=== PATIENT | female | born 1985 | race Caucasian/White ===

== ENCOUNTER 2017-11-11 14:54 | Emergency (ER) | payer BC ==
[~2017-11-11 14:54] MED LIST: OXYC1SOL5 PO; PRENTAB72 PO
[2017-11-11] MEDS ORDERED: BETAMETHASONE SOD PHOS/ACETATE SUSP 30 MG/5 ML VIAL IM ONE (16:45)
--- NOTE | 2017-11-11 16:57 | PD ---
HPI Chief Complaint bleeding Date Seen: Nov 11, 2017 Time Seen: 16:32 Travel History International Travel<30 Days: No Contact w/Intl Traveler<30Days: No Known Affected Area: No History of Present Illness HPI Pt is a wilmar 32y/o @ 23.3wks. She has PNC with Dr. Coates. She presented today after calling him and being advised to come to triage for evaluation. She has a known placenta previa and reports that today she went to the bathroom and noticed a small amt of discoloration in her underwear. She urinated and when she wiped she saw bright red blood. The total cumulative amt was approx a half dollar size. She reports no intercourse. No ctx, cramping, or LOF. She has +FM. She states that she has been more active lately, on her feet, and lifting her toddler. Weeks Gestation: 23 Para: 1 : 3 History Past Medical History Medical History: Denies Significant Hx Obstetric History Obstetric History 1. SAB 2. 3. current Past Surgical History Narrative Surgical open appendectomy Family History Family History: Negative Social History Alcohol Use: No Tobacco Use: No Substance Abuse: No Allergies-Medications (Allergen,Severity, Reaction): Coded Allergies: No Known Allergies (Unverified , 08/27/15) Home Meds Active Scripts Oxycodone W/ Acetaminophen (Oxycodone/Acetaminophen 5-325 mg/5Ml) 5 mg/325 mg Tab, 1 TAB PO Q4H Y for PAIN SCALE 1 TO 4, #30 TAB Prov:Harry Coates MD 08/29/15 Reported Medications Vit W/ Ferrous Fumara () Tab, 1 PO, TAB 09/02/14 Review of Systems Except as stated in HPI: all other systems reviewed are Neg Physical Exam Narrative General: well developed, well nourished, no acute distress HEENT: normocephalic atraumatic, extraocular movements intact, neck supple Abdomen: soft, gravid, nontender, nondistended Extremities: full range of motion Skin: normal coloration, no rashes, no suspicious skin lesions noted Neurologic: cranial nerves 2-12 grossly intact, normal muscle tone, normal gait Psychiatric: normal mood and affect, appropriate FHTs: 150s [place]: no ctx Data Data Vital Signs Reviewed: Yes Orders Orders Vital Signs (Adult) .ON ADMISSION (11/11/17 16:31) ^ Labor Status (11/11/17 16:31) ^ Non Stress Test (11/11/17 16:31) MDM Plan 32y/o @ 23.3wks with previa and small amt of bleeding. -- toco quiet -- +FHTs -- discussed R/B/A of BMZ at this EGA and pt accepts -- advised that sometimes a small previa bleed precedes a larger bleed; advised on inpt monitoring x24hrs vs outpt; pt stated that she lives very close and would prefer outpt monitoring; given very small amt of blood with nothing further since arrival with multiple voids, this is reasonable -- pt advised to limit lifting her toddler and restrict strenuous activity; maintain hydrations to avoid uterine irritability/bleeding Dispo: stable for d/c home with precautions, return to triage in 24hrs for dose #2, Dr. Coates notified and agreed with POC Diagnosis Diagnosis: Primary Impression: 23 weeks gestation of Additional Impressions: Placenta previa Vagina bleeding Condition: Hodan Taveras MD Nov 11, 2017 16:57
== END 2017-11-11 17:20 | disposition home or self-care (01) ==
LOC: HOBED 14:54
DX: O44.12 Complete placenta previa with hemorrhage, second trimester (principal); Z3A.23 23 weeks gestation of pregnancy
CPT/HCPCS: 96372; 99283; J0702

== ENCOUNTER → 2017-11-12 | Outpatient (CLI) | payer BC ==
[2017-11-12] MEDS: BETAMETHASONE SOD PHOS/ACETATE SUSP 30 MG/5 ML VIAL IM (17:08)
== END ==
LOC: HOBG 16:34
DX: O44.00 Complete placenta previa NOS or without hemorrhage, unspecified trimester (principal); Z3A.00 Weeks of gestation of pregnancy not specified
CPT/HCPCS: J0702

== ENCOUNTER → 2017-11-24 | Outpatient (CLI) | payer BC | LOC: HPND 14:46 | PROVIDERS: ATTEND Obstetrics & Gynecology | DX: O44.02 Complete placenta previa NOS or without hemorrhage, second trimester (principal); O44.42 Low lying placenta NOS or without hemorrhage, second trimester | CPT/HCPCS: 76816 ==

== ENCOUNTER → 2017-12-26 | Outpatient (CLI) | payer BC | LOC: HPND 14:58 | PROVIDERS: ATTEND Obstetrics & Gynecology | DX: O44.02 Complete placenta previa NOS or without hemorrhage, second trimester (principal) | CPT/HCPCS: 76816 ==

== ENCOUNTER 2018-02-28 13:01 | Inpatient (IN) ==
[~2018-02-28 13:01] MED LIST changes: +Ketorolac Inj 30 MG/ML (IVP) Vial IV.PUSH PRN; -OXYC1SOL5 PO; -PRENTAB72 PO
[2018-02-28] MEDS ORDERED: Sodium Chlor 0.9% Inj 500 ML IV.SIG PRN (13:26)
[2018-02-28] MEDS ORDERED: Sod Chloride 0.9% Inj 1,000 ML IV.CONT PRN (13:26)
[2018-02-28] MEDS ORDERED: Oxytocin 30 Units/500ml Premix 30 UNITS/500 ML BAG IV.SIG ONE (13:26)
[2018-02-28] MEDS ORDERED: Naloxone Inj 0.4 MG/ML Vial IV.PUSH PRN ×2 (13:26→17:47)
[2018-02-28] MEDS ORDERED: fentaNYL Citrate Inj 100 MCG/2 ML Ampul IV.PUSH PRN ×2 (13:26)
[2018-02-28] MEDS ORDERED: Citric Acid/Sodium Citrate Liq 30 ML UDC PO SCH (13:30)
--- NOTE | 2018-02-28 13:31 | P.HPOB ---
History of Present Illness Primary Care Physician: UNKNOWN Dr. Coates Chief Complaint: Water broke History of Present Illness: Patient is a 32-year-old white female at [address] Coates for care presents complaining of gross rupture the membranes just hours ago , no bleeding. That she is having contractions that are uncomfortable. heart rate tracing is reactive. Weeks Gestation:: 39 Para: 1 : 3 Total # of Miscarriage(s): 1 Review of Systems Constitutional: Denies anorexia, Denies body ache(s), Denies chills, Denies daytime sleepiness, Denies excessive sweating, Denies fatigue, Denies fever(s), Denies headache(s), Denies increased appetite, Denies lack of energy, Denies malaise, Denies night sweats, Denies weakness, Denies weight gain, Denies weight loss, Denies other Cardiovascular: Denies bluish discoloration of hand/feet, Denies chest pain, Denies chest pain at rest, Denies chest pain with activity, Denies excessive sweating, Denies fainting, Denies fast heart rate, Denies foot swelling, Denies generalized swelling, Denies irregular heart rhythm, Denies leg pain with activity, Denies leg sores, Denies leg swelling, Denies lightheadedness, Denies radiating jaw, neck or arm pain, Denies rapid, pounding, or irregular heartbeat , Denies shortness of breath, Denies shortness of breath with activity, Denies shortness of breath when lying down, Denies shortness of breath causing sudden awakening, Denies slow heart rate, Denies other Respiratory: Denies change in phlegm color, Denies chest congestion, Denies cough, Denies coughing up blood, Denies excessive phlegm production, Denies pain on inspiration, Denies pain with cough, Denies shortness of breath, Denies shortness of breath with activity, Denies snoring, Denies stridor, Denies wheezing, Denies other Gastrointestinal: Denies abdominal pain, Denies belching, Denies black, tarry stools, Denies bloating, Denies bright, red blood in stools, Denies change in bowel habits, Denies constant urge to pass stool, Denies change in stools, Denies coffee ground vomit, Denies constipation, Denies cramping, Denies difficulty swallowing, Denies excessive passing of gas, Denies feeling full early, Denies heartburn, Denies incontinent of stools, Denies loose stools, Denies nausea, Denies pain with swallowing, Denies vomiting, Denies vomiting blood, Denies other Genitourinary: Denies abnormal periods, Denies abnormal vaginal bleeding, Denies absent period, Denies bleeding between periods, Denies blood in urine, Denies difficulty starting urination, Denies difficulty urinating, Denies dribbling after urination, Denies frequent nighttime urination, Denies genital itching, Denies genital lesions, Denies heavy periods, Denies hot flashes, Denies light periods, Denies nipple discharge, Denies painful intercourse, Denies painful periods, Denies painful urination, Denies pelvic pain, Denies prolapse symptoms, Denies sexual problems, Denies side pain, Denies urinary incontinence, Denies urinary urgency, Denies vaginal discharge, Denies vaginal dryness, Denies vaginal odor, Denies vaginal itching, Denies other Neurologic: Denies abnormal hearing, Denies abnormal movements, Denies abnormal speech, Denies abnormal walking, Denies behavioral changes, Denies burning sensations, Denies confusion, Denies dizziness, Denies fainting, Denies frequent falls, Denies headache(s), Denies lack of coordination, Denies localized weakness, Denies loss of vision, Denies memory loss, Denies numbness, Denies other visual disturbances, Denies radiating pain, Denies restless legs, Denies convulsions, Denies seizure-like activity, Denies sensory deficit, Denies tingling, Denies tingling/numbness/burning sensations, Denies tremor(s), Denies unsteadiness, Denies weakness, Denies other PMFSH - Tobacco History Smoking Status: Never smoker - Alcohol History How Often Do You Have a Drink Containing Alcohol: Never - Travel History History of Recent Travel: No Recent Travel in the [facility] Within the Last 8 Weeks: No Recent Travel Out of the Country Within the Last 8 Weeks: No Medications and Allergies Allergies Allergy/AdvReac Type Severity Reaction Status Date / Time No Known Allergies Allergy Uncoded 08/27/15 20:21 Exam Vital signs: Vital Signs 02/28/18 13:20 Temperature 98.4 F Respiratory Rate 18 - Constitutional no acute distress - Routine HEENT Exam Head: Present: normocephalic, atraumatic Eye: Present: PERRL - Routine Respiratory Exam Present: CTA bilaterally - Routine Cardiovascular Exam Present: RRR, S1, S2 - Routine Exam Comments: Cervix is 2/70/-1/vertex - Routine Skin Exam Present: intact - Routine Neurological Exam Present: alert, oriented X3, CN II-XII intact Caprini VTE Risk Assessment Caprini VTE Risk Assessment: No/Low Risk (score <= 1) Caprini Risk Assessment Model: Point Value = 1 Point Value = 2 Point Value = 3 Point Value = 5 Age 41-60 Minor surgery BMI > 25 kg/m2 Swollen legs Varicose veins or History of unexplained or recurrent spontaneous Oral contraceptives or hormone replacement Sepsis (< 1 month) Serious lung disease, including pneumonia (< 1 month) Abnormal pulmonary function Acute myocardial infarction Congestive heart failure (< 1 month) History of inflammatory bowel disease Medical patient at bed rest Age 61-74 Arthroscopic surgery Major open surgery (> 45 min) Laparoscopic surgery (> 45 min) Malignancy Confined to bed (> 72 hours) Immobilizing plaster cast Central venous access Age >= 75 History of VTE Family history of VTE Factor V Leiden Prothrombin [id number] Lupus anticoagulant Anticardiolipin antibodies Elevated serum homocysteine Heparin-induced thrombocytopenia Other congenital or acquired thrombophilia Stroke (< 1 month) Elective arthroplasty Hip, pelvis, or leg fracture Acute spinal cord injury (< 1 month) Prophylaxis Regimen: Total Risk Factor Score Risk Level Prophylaxis Regimen 0-1 Low Early ambulation 2 Moderate Order ONE of the following: *Sequential Compression Device (SCD) *Heparin 5000 units SQ BID 3-4 Higher Order ONE of the following medications: *Heparin 5000 units SQ TID *Enoxaparin/Lovenox 40 mg SQ daily (WT < 150 kg, CrCl > 30 mL/min) *Enoxaparin/Lovenox 30 mg SQ daily (WT < 150 kg, CrCl > 10-29 mL/min) *Enoxaparin/Lovenox 30 mg SQ BID (WT < 150 kg, CrCl > 30 mL/min) AND/OR *Sequential Compression Device (SCD) 5 or more Highest Order ONE of the following medications: *Heparin 5000 units SQ TID (Preferred with Epidurals) *Enoxaparin/Lovenox 40 mg SQ daily (WT < 150 kg, CrCl > 30 mL/min) *Enoxaparin/Lovenox 30 mg SQ daily (WT < 150 kg, CrCl > 10-29 mL/min) *Enoxaparin/Lovenox 30 mg SQ BID (WT < 150 kg, CrCl > 30 mL/min) AND *Sequential Compression Device (SCD) Assessment and Plan - Diagnosis (1) Amniotic fluid leaking Code(s): O42.90 - Premature rupture of membranes, unspecified as to length of time between rupture and onset of labor, unspecified weeks of gestation Status : Acute (2) Uterine contractions Status: Acute (3) 39 weeks gestation of Code(s): Z3A.39 - 39 weeks gestation of Status: Acute - Plan Plan admit the patient to Dr. Coatse's service, to be admitted labor and delivery. Plan is admit, augment as needed, and anticipate vaginal delivery plan of care discussed with Dr. Coates
[2018-02-28] MEDS ORDERED: Penicillin G Potassium Inj 5,000,000 UNIT in Sodium Chloride 0.9% Inj 100 ML IV.SIG ONE (14:30)
[2018-02-28 14:42] LABS: Bilirubin,Urine Negative (Negative); Clarity,Urine Cloudy (Clear); Color,Urine Amber (Yellw/Straw); Glucose,Urine (UA) Negative (Negative); Leukocyte Esterase,Urine Small (Negative); Mucus,Urine Few /lpf (Occasional); Nitrite,Urine Negative (Negative); Specific Gravity,Urine 1.019 (1.002-1.035); Squamous Epithelial Cell,Urine 15 /hpf (0-5)
[2018-02-28 14:55] LABS: Amphetamine Urine With Conf Neg (Neg); Benzodiazepine Urine With Conf Neg (Neg)
[2018-02-28] MEDS ORDERED: Oxytocin 30 Units/500ml Premix 30 UNITS/500 ML BAG IV.SIG PRN (15:30)
[2018-02-28] MEDS ORDERED: Measles/Mumps/Rubella Vaccine Inj 0.5 ML Vial SQ ONE (16:00)
[2018-02-28] MEDS ORDERED: Diphtheria/Tetanus/Pertussis Vaccine Inj 0.5 ML Syringe IM ONE (16:00)
[2018-02-28 16:43] LABS: Baso % (Auto) 0.3 % (0.0-2.0); Eos % (Auto) 0.3 % (0.0-4.0); Hematocrit 38.1 % (35.0-46.0); Hemoglobin 12.8 gm/dL (11.6-15.3); Lymph % (Auto) 8.3 % (9.0-44.0); Mean Corpuscular HGB Conc 33.5 % (32.0-36.0); Mean Corpuscular Hemoglobin 29.5 pg (27.0-34.0); Mean Corpuscular Volume 88.2 fL (80.0-100.0); Mean Platelet Volume 9.3 fL (7.0-11.0); Mono # (Auto) 0.5 th/mm3 (0.0-0.9); Mono % (Auto) 4.5 % (0.0-8.0); Neut # (Auto) 10.1 th/mm3 (1.8-7.7); Neut % (Auto) 86.6 % (16.0-70.0); Platelet Count 158 th/mm3 (150-450); Red Blood Count 4.32 mil/mm3 (4.00-5.30); Red Cell Distribution Width 13.6 % (11.6-17.2); White Blood Count 11.7 th/mm3 (4.0-11.0)
[2018-02-28] MEDS ORDERED: Lidocaine PF 1% Inj 10 ML Amp ONE (17:27)
[2018-02-28] MEDS ORDERED: Ketorolac Inj 30 MG/ML (IVP) Vial IV.PUSH ONE (17:45)
[2018-02-28] MEDS ORDERED: Zolpidem Tartrate 5 MG Tablet PO PRN (17:47)
[2018-02-28] MEDS ORDERED: Witch Hazel 50%/Glyderin 12.5% 40 Pad Jar RECTAL PRN (17:47)
[2018-02-28] MEDS ORDERED: Bisacodyl 10 MG Supp RECTAL PRN (17:47)
[2018-02-28] MEDS ORDERED: Benzocaine 20% Top Spray 60 ML Can TOPICAL PRN (17:47)
[2018-02-28] MEDS ORDERED: Acetaminophen 325 MG Tablet PO PRN (17:47)
[2018-02-28] MEDS ORDERED: Oxytocin 30 Units/500ml Premix 30 UNITS/500 ML BAG IV.CONT SCH (18:00)
--- NOTE | 2018-02-28 18:00 | MP ---
cc: Harry Coates MD DATE OF OPERATION: 02/28/2018 DELIVERY SUMMARY: The patient is a 32-year-old white female, para 1-0-1-1 at term ,progressed to a spontaneous vaginal delivery over a midline second-degree tear, a viable vigorous female. With delivery of the head, it became obvious there was a tight nuchal cord. This was clamped and cut to allow delivery of the shoulders. It was then passed easily. The baby was placed on the mom's abdomen. This was viable female, Apgars 8 and 9, weight 7 pounds 12 ounces. Cord blood was collected for typing. The placenta delivered intact. The small midline tear was repaired with 10 mL of lidocaine 1% and 2-0 chromic. Post-repair exam of the cervix and vagina was normal. Rectal exam was normal. All counts were correct. MD IFEANYI Bryant/KD , 05:47 PM , 05:52 PM
--- NOTE | 2018-02-28 18:02 | MH ---
cc: Harry Coates MD DATE OF ADMISSION: 02/28/2018 DATE OF ADMISSION: 02/28/2018. TIME OF THE PHYSICAL: 13:30. ADMITTING DIAGNOSIS: Term , spontaneous rupture of membranes. HISTORY OF PRESENT ILLNESS: The patient is a 32-year-old white female, para 1-0-1-1, with an LMP of 05/31/2017, EDC of 03/07/2018. Her course was benign. Early in had a previa, but that resolved with the growth of the uterus. She had spontaneous rupture of clear fluid at 12:15 today and is now admitted for delivery. PAST SURGICAL HISTORY: In 2000, she had an appendiceal abscess that was drained in November of that year, in February required open appendectomy. MEDICATIONS: Vitamins. ALLERGIES: NONE. TRANSFUSIONS: None. SOCIAL HISTORY: She is . She is an RN at [employer]. Alcohol, tobacco and drugs are none. FAMILY HISTORY: Noncontributory. ROS is negative. PHYSICAL EXAMINATION: GENERAL: A well-nourished, well-developed white female. VITAL SIGNS: Stable. HEENT: Normal. CHEST: Clear. HEART: Regular rate. BREASTS: Symmetrical. ABDOMEN: Gravid. ESTIMATED WEIGHT: 3400 grams. PELVIC: Cervix is 270, vertex, ruptured, -1. GBS is positive. PLAN: Admit for antibiotic therapy and Pitocin induction. Anticipate vaginal delivery. MD IFEANYI Bryant/CARMENCITA , 05:45 PM , 05:53 PM [facility]ITAL[facility]
[2018-02-28] MEDS ORDERED: Penicillin G Potassium Inj 2,500,000 UNIT in Sodium Chlor 0.9% Inj 100 ML IV.SIG SCH (18:30)
[2018-02-28] MEDS: Senna/Docusate Sodium 8.6/50 MG Tablet PO SCH (21:04)
[2018-03-01] MEDS: Ibuprofen 400 MG Tablet PO PRN ×2 (01:04→10:18)
[2018-03-01 22:37] LABS: Hematocrit 31.2 % (35.0-46.0); Hemoglobin 10.5 gm/dL (11.6-15.3); Mean Corpuscular HGB Conc 33.5 % (32.0-36.0); Mean Corpuscular Hemoglobin 29.7 pg (27.0-34.0); Mean Corpuscular Volume 88.7 fL (80.0-100.0); Mean Platelet Volume 9.1 fL (7.0-11.0); Platelet Count 177 th/mm3 (150-450); Red Blood Count 3.52 mil/mm3 (4.00-5.30); Red Cell Distribution Width 13.6 % (11.6-17.2); White Blood Count 9.8 th/mm3 (4.0-11.0)
--- NOTE | 2018-03-02 08:36 | MD ---
cc: Harry Coates MD DATE OF DISCHARGE: 03/02/2018 ADMITTING DIAGNOSIS: Term , spontaneous rupture of membranes, positive GBS. DISCHARGE DIAGNOSIS: Term , spontaneous rupture of membranes, positive GBS, delivery. HISTORY OF PRESENT ILLNESS: The patient is a 32-year-old white female, para 1-0-1-1, with an LMP of 05/31/2017, EDC of 03/07/2018. Her preop course was benign. Her labs were normal, except for a positive GBS. Mid trimester ultrasound showed a complete previa but this did resolve. She had spontaneous rupture of membranes on date of admission and was admitted and begun on IV penicillin prophylaxis, Pitocin augmentation and rapidly progressed to a spontaneous vaginal delivery over a midline small second-degree tear, a viable vigorous female, Apgars 8 and 9, weight 7 pounds 12 ounces. She had repair with local anesthesia and chromic suture. did well. DISPOSITION: Discharged home in stable condition on 03/02/2018. Her pre and postop labs were normal. She was advised NPV, light activity, return to see me in 6 weeks. She is to call for abnormal pain, bleeding, temperature, signs of infection or depression. She will take OTC Motrin and Tylenol for pain relief. Her blood type is positive. Harry Coates MD JAW/TL , 08:21 AM , 08:26 AM
[2018-03-02 09:44] VITALS: BP 108/58; PULSE 97; RESP 18; TEMP 97.6
[2018-03-02] MEDS: Senna/Docusate Sodium 8.6/50 MG Tablet PO SCH (09:47)
== END 2018-03-02 14:27 | disposition home or self-care (01) ==
LOC: HOBED 13:01 → H2E 13:35 → H1EA 18:48
PROVIDERS: ADMIT Obstetrics & Gynecology; ATTEND Obstetrics & Gynecology